=== PATIENT | male | born 1945 | race Caucasian/White ===

== ENCOUNTER → 2016-10-16 | Outpatient (CLI) | payer OTHER, BC ==
[~2016-10-16] MED LIST: AMLO-110 PO; ASPI-232 PO; AZIT250T PO; CHOL1CAP93 PO; CHRO200C PO; CLOP1TAB5 PO; CODCAP PO; FINA5TAB4 PO; FLAX1CAP11 PO; HYDR-1838 PO; HYDR1TAB2 PO; LANS30CA63 PO; LISI5TAB PO; LORA0.5T12 PO; LPT/40 PO; MAGN250T12 PO; MECL1TAB42 PO; METO50TA7 PO; MULTTAB PO; NITR0.4S UT; OMEG12006 PO
[2016-10-16 13:17] LABS: HEMATOCRIT 43.6 % (42-52); MEAN CELL VOLUME 90.5 fL (80-100); MEAN CORPUSCULAR HGB CONC 35.3 g/dl (32-36); MEAN PLATELET VOLUME 9.9 fL (7.4-10.4); PLATELET COUNT 269 K/uL (130-400); RED BLOOD COUNT 4.82 M/uL (4.7-6.1)
[2016-10-16 13:55] LABS: BLOOD UREA NITROGEN 11 mg/dl (7-18); BUN/CREATININE RATIO 9.5 (10-20); CALCIUM 8.9 mg/dl (8.5-10.1); CARBON DIOXIDE 27 mmol/L (21-32); CHLORIDE 105 mmol/L (98-107); GLUCOSE 127 mg/dl (70-99); POTASSIUM 3.9 mmol/L (3.5-5.1); SODIUM 141 mmol/L (136-145)
[2016-10-16 13:58] LABS: ALB/GLOB RATIO 0.9 (0.9-2); ALKALINE PHOSPHATASE 68 U/L (45-117); ALT/SGPT 23 U/L (12-78); AST/SGOT 22 U/L (15-37)
== END | disposition home or self-care (01) ==
LOC: C.LABMFLN 10:49
PROVIDERS: ATTEND Internal Medicine Cardiovascular Disease
DX: I25.10 Atherosclerotic heart disease of native coronary artery without angina pectoris (principal); I10 Essential (primary) hypertension; E78.2 Mixed hyperlipidemia; N40.1 Benign prostatic hyperplasia with lower urinary tract symptoms; K21.9 Gastro-esophageal reflux disease without esophagitis; B37.89 Other sites of candidiasis

== ENCOUNTER → 2017-07-10 | Outpatient (CLI) | payer OTHER, BC ==
[2017-07-10 17:54] LABS: HEMATOCRIT 45.7 % (42-52); MEAN CELL VOLUME 91.8 fL (80-100); MEAN CORPUSCULAR HEMOGLOBIN 32.9 pg (25-34); MEAN CORPUSCULAR HGB CONC 35.9 g/dl (32-36); MEAN PLATELET VOLUME 9.8 fL (7.4-10.4); PLATELET COUNT 215 K/uL (130-400); RED BLOOD COUNT 4.98 M/uL (4.7-6.1); WHITE BLOOD COUNT 7.08 K/uL (4.8-10.8)
[2017-07-10 18:05] LABS: ALT/SGPT 23 U/L (12-78); AST/SGOT 26 U/L (15-37)
== END | disposition home or self-care (01) ==
LOC: C.LABMFLN 12:20
PROVIDERS: ATTEND Internal Medicine Cardiovascular Disease
DX: E78.5 Hyperlipidemia, unspecified (principal); I25.10 Atherosclerotic heart disease of native coronary artery without angina pectoris; I10 Essential (primary) hypertension